=== PATIENT | male | born 1940 | race Hispanic/Latino ===

== ENCOUNTER 2019-07-01 08:31 | Inpatient (IN) | payer MEDICARE ==
[2019-06-29 16:10] LABS: BASOPHILS # (AUTO) 0.1 (0.0-0.1); BASOPHILS % 0.4 % (0.0-1.0); EOSINOPHILS # (AUTO) 0.1 (0.0-0.4); EOSINOPHILS % 0.5 % (0.0-6.0); HEMATOCRIT 41.9 % (38.2-49.6); HEMOGLOBIN 14.3 g/dL (14.0-18.0); LYMPHOCYTES # (AUTO) 8.5 (1.0-3.2); LYMPHOCYTES % 62.1 % (18.0-39.1); MEAN CORPUSCULAR HEMOGLOBIN 33.3 pg (28-32); MEAN CORPUSCULAR HGB CONC 34.1 g/dL (31-35); MEAN CORPUSCULAR VOLUME 97.7 fL (81-99); MONOCYTES # (AUTO) 1.7 (0.2-0.8); MONOCYTES % 12.3 % (4.4-11.3); NEUTROPHILS # (AUTO) 3.3 (2.1-6.9); NEUTROPHILS % 24.6 % (38.7-80.0); PLATELET COUNT 263 x10e3/uL (140-360); RED BLOOD COUNT 4.29 x10e6/uL (4.3-5.7); RED CELL DISTRIBUTION WIDTH 13.9 % (11.7-14.4)
[2019-06-29 16:25] LABS: ANION GAP 15.1 mmol/L (8-16); BLOOD UREA NITROGEN 10 mg/dL (7-26); BUN/CREATININE RATIO 12 (6-25); CALCIUM 9.7 mg/dL (8.4-10.2); CARBON DIOXIDE 25 mmol/L (22-29); CHLORIDE 105 mmol/L (98-107); CREATININE, SERUM 0.86 mg/dL (0.72-1.25); EST GLOMERULAR FILTRATION RATE > 60 ML/MIN (60-); GLUCOSE 130 mg/dL (74-118); POTASSIUM 4.1 mmol/L (3.5-5.1); SODIUM 141 mmol/L (136-145)
--- NOTE | 2019-06-29 16:47 | Diagnostic Imaging Report ---
EXAMINATION: CHEST 2 VIEWS INDICATION: Pre-operative COMPARISON: None FINDINGS: LINES/TUBES:None LUNGS:The lungs are hyperinflated. No focal consolidation or pulmonary edema. Mild bibasilar subsegmental atelectasis. PLEURA:No pleural effusion or pneumothorax. MEDIASTINUM:The cardiomediastinal silhouette appears normal in size and shape. Atherosclerotic calcifications of the thoracic aorta. BONES/SOFT TISSUES:No acute osseous injury. ABDOMEN:No free air under the diaphragm. IMPRESSION: Hyperinflated lungs. No focal pneumonia or pulmonary edema. Signed by: Emanuel Craig MD on 06/29/2019 4:45 PM
[~2019-07-01] VITALS: Ht 170.2 cm; Wt 85.7 kg
[~2019-07-01 08:31] MED LIST: AMLODIPINE BESY10 MG PO; FLOMAX0.4 MG PO; FUROSEMIDE40 MG PO; HUMALOG100 UNIT/1 SQ; KLOR-CON 1010 MEQ PO; LANTUS 3ML100 UNITS/ SQ; OMEPRAZOLE40 MG PO
--- OUTSIDE RECORDS SUMMARY | 2019-07-01 08:40 | XMS REPORT ---
Author Author [facility] Address Unknown Phone Unavailable Care Team Providers [employer] Member Name Role Phone FLY TEMPLE Unavailable Unavailable Problems This patient has no known problems. Allergies, Adverse Reactions, Alerts This patient has no known allergies or adverse reactions. Medications This patient has no known medications. Results Test Description Test Time Test Comments Text Results Atomic Results Result Comments CHEST 2 VIEWS 2019-06-29 16:44:00 [place] [address] Patient Name: MIKE KEARNS MR #: [id number] : 1940 Age/Sex: 78/M Req #: [id number] Adm Physician: Ordered by: FLY TEMPLE MD Report #: [id number] Location: OR Room/Bed: Procedure: [id number] DX/CHEST 2 VIEWS Exam Date: 06/29/19 Exam Time: 1615 REPORT STATUS: Signed EXAMINATION: CHEST 2 VIEWS INDICATION: Pre-operative COMPARISON: None FINDINGS: LINES/TUBES:None LUNGS:The lungs are hyperinflated. No focal consolidation or pulmonary edema. Mild bibasilar subsegmental atelectasis. PLEURA:No pleural effusion or pneumothorax. MEDIASTINUM:The cardiomediastinal silhouette appears normal in size and shape. Atherosclerotic calcifications of the thoracic aorta. BONES/SOFT TISSUES:No acute osseous injury. ABDOMEN:No free air under the diaphragm. IMPRESSION: Hyperinflated lungs. No focal pneumonia or pulmonary edema. Signed by: Ariane Craig MD on 06/29/2019 4:45 PM Dictated By: ARIANE CRAIG MD 44 Transcribed By: LARISA on 06/29/191644 COPY TO: FLY TEMPLE MD
[2019-07-01] MEDS ORDERED: PIPER-TAZ 3.375 GM 50 ML ONE ×2 (08:59→09:04)
[2019-07-01] MEDS ORDERED: GENTAMICIN 80MG/NS 100 ML 200 ML IV ONE (08:59)
[2019-07-01] MEDS ORDERED: IOPAMIDOL 300MG/ML 50ML INFUS..BTL IV ONE (09:11)
[2019-07-01] MEDS ORDERED: B&O 60MG R/S 60 MG SUPP PR ONE (09:11)
[2019-07-01] MEDS ORDERED: BUPIVACAINE 0.5%/EPI 30 ML SDV INJ ONE (09:14)
[2019-07-01] MEDS ORDERED: BUPIVACAINE HCL 0.5% INJ 30 ML VIAL INJ ONE (09:32)
[2019-07-01] MEDS ORDERED: DIPHENHYDRAMINE HCL 25 MG CAP PO PRN (09:45)
[2019-07-01] MEDS ORDERED: B&O 60MG R/S 60 MG SUPP PR PRN (09:45)
[2019-07-01] MEDS ORDERED: ACETAMINOPHEN 1000 MG/100 ML IV PRN (09:45)
[2019-07-01] MEDS ORDERED: ACETAMINOPHEN/CODEINE 300MG - 30MG TAB PO PRN (09:45)
[2019-07-01] MEDS ORDERED: ONDANSETRON HCL INJ 2MG/ML 2ML 2 MG/ML VIAL IV PRN ×2 (09:45→15:45)
[2019-07-01] MEDS ORDERED: BACITRACIN ZINC 15 GM OINT ONE (09:59)
[2019-07-01] MEDS ORDERED: SUGAMMADEX SODIUM 200 MG/2 ML VIAL IV ONE (10:37)
[2019-07-01] MEDS ORDERED: FUROSEMIDE INJ 10 MG/ML 4 ML VIAL ONE (12:32)
[2019-07-01 12:35] LABS: BASOPHILS # (AUTO) 0.1 (0.0-0.1); BASOPHILS % 0.3 % (0.0-1.0); EOSINOPHILS % 0.1 % (0.0-6.0); HEMATOCRIT 40.1 % (38.2-49.6); HEMOGLOBIN 13.4 g/dL (14.0-18.0); LYMPHOCYTES % 45.6 % (18.0-39.1); MEAN CORPUSCULAR HGB CONC 33.4 g/dL (31-35); MEAN CORPUSCULAR VOLUME 98.8 fL (81-99); MONOCYTES # (AUTO) 1.2 (0.2-0.8); NEUTROPHILS % 45.5 % (38.7-80.0); PLATELET COUNT 220 x10e3/uL (140-360); RED BLOOD COUNT 4.06 x10e6/uL (4.3-5.7); RED CELL DISTRIBUTION WIDTH 13.9 % (11.7-14.4)
[2019-07-01 12:56] LABS: ANION GAP 14.1 mmol/L (8-16); BLOOD UREA NITROGEN 10 mg/dL (7-26); BUN/CREATININE RATIO 13 (6-25); CALCIUM 7.6 mg/dL (8.4-10.2); CARBON DIOXIDE 18 mmol/L (22-29); CHLORIDE 111 mmol/L (98-107); CREATININE, SERUM 0.75 mg/dL (0.72-1.25); EST GLOMERULAR FILTRATION RATE > 60 ML/MIN (60-); GLUCOSE 180 mg/dL (74-118); POTASSIUM 4.1 mmol/L (3.5-5.1); SODIUM 139 mmol/L (136-145)
[2019-07-01] MEDS ORDERED: FUROSEMIDE INJ 10 MG/ML 2 ML VIAL IV ONE (13:00)
--- NOTE | 2019-07-01 13:17 | NUR ---
PT ARRIVED FROM PACU TO ROOM 114, CBI WITH SUAZO IN PLACE. PT AWAKE, ALERT, ORIENTED, FAMILY AT BEDSIDE. PT HAS NO COMPLAINTS OF PAIN AT THIS TIME.
[2019-07-01 13:18] VITALS: BP 131/88
[2019-07-01 15:17] LABS: ANISOCYTOSIS SLIGHT; LYMPHOCYTES % (MANUAL) 53 % (19-48); MONOCYTES % (MANUAL) 7 % (3.4-9.0); NEUTROPHILS % (MANUAL) 40 % (40-74); PLATELET ESTIMATE ADEQUATE; PLATELET MORPHOLOGY COMMENT NORMAL; RBC MORPHOLOGY COMMENT NORMAL
[2019-07-01] MEDS ORDERED: DEXTROSE 50% SYRINGE 50 ML IV PRN (15:45)
--- NOTE | 2019-07-01 15:45 | NUR ---
PAGING VENCES REGARDING PT'S BLOOD SUGAR OF 225 AND NEED FOR RESTARTING HOME MEDS.
[2019-07-01] MEDS ORDERED: INSULIN LISPRO 6 UNIT SQ SCH (16:30)
[2019-07-01] MEDS: SOD CHL 0.45%/POT CHL 20MEQ 1,000 ML IV SCH ×2 (17:01→17:14)
[2019-07-01] MEDS: PIPER-TAZ 3.375 GM 50 ML IV SCH (17:02)
[2019-07-01] MEDS: PHENAZOPYRIDINE HCL 100 MG TAB PO SCH ×2 (17:09→22:11)
[2019-07-01] MEDS: DOCUSATE SODIUM 100 MG CAP PO SCH (17:09)
[2019-07-01] MEDS: INSULIN LISPRO 100 UNIT/1 ML 3ML VIAL SQ SCH ×3 (17:15→21:10)
[2019-07-01 17:22] VITALS: BP 120/76
[2019-07-01] MEDS ORDERED: EPHEDRINE SULFATE INJ 50 MG/ML VIAL ONE (17:53)
[2019-07-01] MEDS ORDERED: PROPOFOL IV EMULSION 10 MG/ML 50 ML VIAL ONE (17:53)
[2019-07-01] MEDS ORDERED: ROCURONIUM BROMIDE 10 MG/ML 5ML VIAL ONE (17:53)
[2019-07-01] MEDS ORDERED: ACETAMINOPHEN 1000 MG/100 ML IV ONE (17:53)
[2019-07-01] MEDS ORDERED: DEXAMETHASONE SOD PHOS INJ 4 MG/ML VIAL ONE (17:53)
[2019-07-01] MEDS ORDERED: SEVOFLURANE INHAL SOLN 250 ML PEN BTL ONE (17:53)
[2019-07-01] MEDS ORDERED: LIDOCAINE HCL 2% LOCAL INJ 5 ML SDV VIAL INJ ONE (17:53)
[2019-07-01] MEDS ORDERED: ONDANSETRON HCL INJ 2MG/ML 2ML 2 MG/ML VIAL ONE (17:53)
[2019-07-01] MEDS ORDERED: GLYCOPYRROLATE INJ 0.2 MG/ML VIAL ONE (17:53)
[2019-07-01] MEDS ORDERED: FENTANYL CITRATE/PF 100MCG/2 ML INJ ONE (18:10)
[2019-07-01 20:00] VITALS: BP 136/76
[2019-07-01 20:51] VITALS: BP 136/76
[2019-07-01] MEDS ORDERED: NON-FORMULARY MEDICATION (Insulin Glargine (Lantus 3ML Pen) 15 UNITS) SQ SCH (21:00)
--- NOTE | 2019-07-01 21:10 | NUR ---
Assessment done.no resp.distress.pain voiced 08/03.on contd.bladder irrigation.muñoz colored urine draining.no clots noted.scd applied.dudley hose in place.bed locked and in lowest position.phone and call light within reach.instructed to call for assistance as needed.
[2019-07-01] MEDS: INSULIN GLARGINE 100 UNITS/ML VIAL SQ SCH (21:40)
[2019-07-01] MEDS: TAMSULOSIN HCL 0.4 MG CAP PO SCH (22:11)
--- NOTE | 2019-07-01 22:32 | History and Physical ---
PRIMARY CARE PHYSICIAN: Samm Zuniga MD SCALLOP CUTTER MACHINE: Raul Hoff MD CHIEF COMPLAINT: Status post TURP and prostate biopsy. HISTORY OF PRESENT ILLNESS: The patient is an 78-year-old male with enlarged prostate and also possible prostate lesion. He also has diabetes type 2, on insulin therapy, uncontrolled. Baseline very hard hearing and osteoarthritis, but otherwise, the patient was stable. He is now status post TURP procedures with prostate biopsy and the patient is getting continuous urinary bladder irrigation. He is lethargic now postop, but seems very comfortable and unremarkably stable. PAST MEDICAL HISTORY: Very hard of hearing, osteoarthritis; diabetes type 2, on insulin treatment, uncontrolled due to compliancy to diet. Enlarged prostate. Reflux. SOCIAL HISTORY: The patient lives with his family. He has very good family support. No smoking. No recreational drug use. No alcohol. ALLERGIES: NO KNOWN ALLERGIES. HOME MEDICATIONS: Norvasc, furosemide, Lantus insulin, lispro insulin, omeprazole, potassium, Flomax, and Lasix. PHYSICAL EXAMINATION: VITAL SIGNS: Temperature is 98, blood pressure 131/81, pulse rate 61, respirations 18. GENERAL: The patient is not in acute distress. He is arousable postoperative today. HEENT: Normocephalic and atraumatic. Sclerae anicteric. NECK: Supple grossly. PULMONARY: Diminished breath sounds, but no wheezing or rales. CARDIOVASCULAR: S1, S2. Regular rate and rhythm. ABDOMEN: Soft. Flynn catheter in place, status post TURP. EXTREMITIES: No cyanosis or edema. NEUROLOGIC: No focal deficit. LABORATORY DATA: WBC 15.3, hemoglobin 13.4, hematocrit 40, platelets 220. Chemistry; sodium 139, potassium 4.1, chloride 111, bicarb 18. BUN is 10, creatinine 0.7, glucose is 180. Magnesium is 1.5. IMPRESSION: 1. Status post TURP procedures. 2. Gross hematuria postop. It is normal and appropriate. 3. Enlarged prostate. 4. Uncontrolled diabetes type 2, on insulin therapy. 5. Very hard of hearing. 6. Baseline hypertension. PLAN: Continue to monitor patient's electrolyte. Insulin sliding scale coverage. Insulin treatment with cutting back on the dose since the patient is going to be having more diet control here since he is noncompliant to diet at home. Continue with urinary bladder irrigation. Continue with monitoring the patient. IV fluids. Check the patient's blood work in the morning. We will get incentive spirometry subsequently. Rina august. We will monitor the patient closely. MD NAZIA Rodriguez/LAURA /[id number]
[2019-07-02] VITALS (8 sets, daily range): BP systolic 111–138; BP diastolic 58–81
[2019-07-02] MEDS: PIPER-TAZ 3.375 GM 50 ML IV SCH ×3 (00:40→18:05)
[2019-07-02] MEDS: SOD CHL 0.45%/POT CHL 20MEQ 1,000 ML IV SCH (02:05)
--- NOTE | 2019-07-02 04:07 | NUR ---
Flynn care given.resting comfortably.stable condition.
[2019-07-02 05:44] LABS: BASOPHILS % 0.2 % (0.0-1.0); EOSINOPHILS % 0.2 % (0.0-6.0); HEMATOCRIT 36.9 % (38.2-49.6); HEMOGLOBIN 12.3 g/dL (14.0-18.0); LYMPHOCYTES # (AUTO) 7.6 (1.0-3.2); LYMPHOCYTES % 45.5 % (18.0-39.1); MEAN CORPUSCULAR HEMOGLOBIN 32.8 pg (28-32); MEAN CORPUSCULAR HGB CONC 33.3 g/dL (31-35); MEAN CORPUSCULAR VOLUME 98.4 fL (81-99); MONOCYTES # (AUTO) 0.9 (0.2-0.8); MONOCYTES % 5.2 % (4.4-11.3); NEUTROPHILS # (AUTO) 8.1 (2.1-6.9); NEUTROPHILS % 48.5 % (38.7-80.0); PLATELET COUNT 243 x10e3/uL (140-360); RED BLOOD COUNT 3.75 x10e6/uL (4.3-5.7); RED CELL DISTRIBUTION WIDTH 13.8 % (11.7-14.4)
[2019-07-02 06:04] LABS: ANION GAP 14.1 mmol/L (8-16); BLOOD UREA NITROGEN 9 mg/dL (7-26); BUN/CREATININE RATIO 11 (6-25); CALCIUM 8.4 mg/dL (8.4-10.2); CARBON DIOXIDE 25 mmol/L (22-29); CHLORIDE 104 mmol/L (98-107); CREATININE, SERUM 0.81 mg/dL (0.72-1.25); EST GLOMERULAR FILTRATION RATE > 60 ML/MIN (60-); GLUCOSE 157 mg/dL (74-118); POTASSIUM 4.1 mmol/L (3.5-5.1); SODIUM 139 mmol/L (136-145)
[2019-07-02] MEDS: AMLODIPINE BESYLATE 10 MG TAB PO SCH (06:04)
--- NOTE | 2019-07-02 07:05 | NUR ---
Bed side shift report given to oncoming Rn.stable condition.
--- NOTE | 2019-07-02 07:06 | NUR ---
BEDSIDE SHIFT REPORT RECEIVED FROM ONCOLOGY PHYSICIAN RN; PT IN STABLE CONDITION.
[2019-07-02] MEDS: INSULIN LISPRO 100 UNIT/1 ML 3ML VIAL SQ SCH ×7 (08:34→21:20)
[2019-07-02] MEDS: TAMSULOSIN HCL 0.4 MG CAP PO SCH ×2 (08:53→21:56)
[2019-07-02] MEDS: DOCUSATE SODIUM 100 MG CAP PO SCH ×2 (08:53→18:05)
[2019-07-02] MEDS: PANTOPRAZOLE SOD 40 MG TABEC PO SCH (08:53)
[2019-07-02] MEDS: PHENAZOPYRIDINE HCL 100 MG TAB PO SCH ×3 (08:54→18:05)
[2019-07-02] MEDS ORDERED: ONDANSETRON HCL 4 MG ORAL DISINTEGRATING TAB PO PRN (09:30)
[2019-07-02] MEDS: SODIUM BICARBONATE 8.4% 50 ML in SODIUM CHLORIDE 0.45% 1,000 ML IV SCH ×2 (10:27→22:01)
[2019-07-02] MEDS: INSULIN GLARGINE 100 UNITS/ML VIAL SQ SCH (21:15)
[2019-07-03] VITALS: BP 122/59
[2019-07-03] MEDS: PIPER-TAZ 3.375 GM 50 ML IV SCH (01:02)
--- NOTE | 2019-07-03 01:14 | NUR ---
Flynn care given.orange colored urine draining.no resp.distress.no pain voiced.bed locked and in lowest position.phone and call light within reach.instructed to call for assistance as needed.
[2019-07-03] MEDS: AMLODIPINE BESYLATE 10 MG TAB PO SCH (06:13)
[2019-07-03] MEDS: SODIUM BICARBONATE 8.4% 50 ML in SODIUM CHLORIDE 0.45% 1,000 ML IV SCH (06:15)
--- NOTE | 2019-07-03 07:00 | NUR ---
BED SIDE SHIFT REPORT GIVEN TO ONCOMING RN.STABLE CONDITION.
[2019-07-03] MEDS: INSULIN LISPRO 100 UNIT/1 ML 3ML VIAL SQ SCH ×6 (07:30→17:44)
[2019-07-03 08:15] VITALS: BP_SYST 124; BP_SYST 133; BP_DIAS 59; BP_DIAS 62
[2019-07-03 09:21] LABS: BASOPHILS # (AUTO) 0.1 (0.0-0.1); BASOPHILS % 0.3 % (0.0-1.0); EOSINOPHILS # (AUTO) 0.1 (0.0-0.4); EOSINOPHILS % 0.5 % (0.0-6.0); HEMATOCRIT 37.6 % (38.2-49.6); HEMOGLOBIN 12.7 g/dL (14.0-18.0); LYMPHOCYTES # (AUTO) 9.5 (1.0-3.2); LYMPHOCYTES % 54.8 % (18.0-39.1); MEAN CORPUSCULAR HGB CONC 33.8 g/dL (31-35); MEAN CORPUSCULAR VOLUME 97.7 fL (81-99); MONOCYTES # (AUTO) 1.5 (0.2-0.8); MONOCYTES % 8.9 % (4.4-11.3); NEUTROPHILS # (AUTO) 6.1 (2.1-6.9); NEUTROPHILS % 35.2 % (38.7-80.0); PLATELET COUNT 225 x10e3/uL (140-360); RED BLOOD COUNT 3.85 x10e6/uL (4.3-5.7)
[2019-07-03 09:47] LABS: ANION GAP 13.7 mmol/L (8-16); BLOOD UREA NITROGEN 12 mg/dL (7-26); BUN/CREATININE RATIO 14 (6-25); CALCIUM 8.3 mg/dL (8.4-10.2); CARBON DIOXIDE 25 mmol/L (22-29); CHLORIDE 101 mmol/L (98-107); CREATININE, SERUM 0.84 mg/dL (0.72-1.25); EST GLOMERULAR FILTRATION RATE > 60 ML/MIN (60-); GLUCOSE 256 mg/dL (74-118); POTASSIUM 3.7 mmol/L (3.5-5.1); SODIUM 136 mmol/L (136-145)
[2019-07-03] MEDS ORDERED: LEVOFLOXACIN 500 MG TAB PO SCH (10:15)
[2019-07-03 10:26] LABS: LYMPHOCYTES % (MANUAL) 47 % (19-48); MONOCYTES % (MANUAL) 3 % (3.4-9.0); NEUTROPHILS % (MANUAL) 30 % (40-74)
[2019-07-03 10:27] LABS: PLATELET ESTIMATE ADEQUATE; PLATELET MORPHOLOGY COMMENT NORMAL; RBC MORPHOLOGY COMMENT NORMAL
[2019-07-03] MEDS: DOCUSATE SODIUM 100 MG CAP PO SCH ×2 (10:42→17:00)
[2019-07-03] MEDS: PANTOPRAZOLE SOD 40 MG TABEC PO SCH (10:42)
[2019-07-03] MEDS: TAMSULOSIN HCL 0.4 MG CAP PO SCH (10:43)
[2019-07-03] MEDS: PHENAZOPYRIDINE HCL 100 MG TAB PO SCH (10:43)
[2019-07-03 12:29] VITALS: BP 127/60
[2019-07-03] MEDS ORDERED: TYLENOL WITH C1 EACH PO (16:55)
[2019-07-03] MEDS ORDERED: LEVAQUIN500 MG PO (16:55)
[2019-07-03 17:44] VITALS: BP 128/67
--- NOTE | 2019-08-10 05:13 | Operative Report ---
DATE OF PROCEDURE: 07/01/2019 SURGEON: Raul Hoff MD PREOPERATIVE DIAGNOSES: 1. Genital lesion. 2. Elevated PSA. 3. Incomplete bladder emptying. 4. Obstructive benign prostatic hyperplasia. OPERATIONS PERFORMED: 1. Prostate biopsies (separate procedure performed for the elevated PSA). 2. Interpretation of prostatic ultrasound, no radiologist present. 3. Ultrasonographic guidance for needle biopsy of the prostate interpretation without radiologist present. 4. Excision of genital lesion. 5. Complex wound repair reconstruction utilizing local flaps. 6. Cystourethroscopy with bilateral ureteral catheterization and retrograde ureteropyelography (separate procedure performed for the incomplete bladder emptying). 7. Interpretation of retrograde ureteropyelography. 8. Cystourethroscopy with transurethral resection of the prostate utilizing a plasma band. ANESTHESIA: General. COMPLICATIONS: None. CLINICAL SUMMARY: Leon Brown is an 78-year-old man with the above preoperative diagnoses. He is brought for the above procedures. He is aware of the risks of bleeding, infection, injury to adjacent structures, need for additional procedures and elected to proceed. OPERATIVE PROCEDURE IN DETAIL: Informed consent was verified. Leon Brown was properly identified, taken to the operating room, placed on the cystoscopy table in supine position. Anesthesia was uneventfully begun. The patient was then carefully and gently repositioned in dorsal lithotomy position. All pressure points were well padded. A transrectal sonography was performed. Interpretation of transrectal sonography. Real-time ultrasonography was performed transrectally. The patient's prostate measured 70 mL in volume. There were some calcifications at the junction between the transition zone and the peripheral zone. Seminal vesicles were unremarkable. Prostatic capsule was smooth. With ultrasonographic guidance, needle biopsies of the prostate were taken. A total of 12 biopsies were taken, 6 at each side. These 12 biopsies were distinguished in 6 containers right versus left and base versus mid versus apex. Following completion of the biopsies, the patient's genitalia were prepared and draped in usual sterile fashion. An elliptical incision was then made overlying the lesion. The lesion was then excised. The flaps were mobilized circumferentially and complex repair was performed in 2 layers utilizing mobilization of the flaps. Excellent cosmetic result was achieved. Cystoscope sheath with the visual obturator in place was atraumatically inserted into the patient's urethra, it was guided unremarkable urethra through the normal sphincteric region through the prostate bed, which was significant for visual obstructing BPH with a long prostatic urethra. We entered the patient's bladder. Panendoscopy revealed heavy trabeculations and some small diverticula. No suspicious lesions were identified. An 8-Irish catheter was used to cannulate each ureter and retrograde ureteropyelogram was performed. Interpretation of retrograde ureteropyelography contrast was instilled in retrograde fashion bilaterally. There were no tumors, no stones, no diverticula. There was ureteral tortuosity noted bilaterally. There was bilateral J hooking with tortuosity. Nevertheless, unobstructed drainage was observed bilaterally fluoroscopically. The cystoscope was withdrawn. The resectoscope was atraumatically placed with an obturator in place. We then utilized the PlasmaBand electrode to resect the prostate from the bladder neck tube, but never passed the verumontanum and down the surgical capsule. Pinpoint electrocautery was utilized to achieve hemostasis. All chips were evacuated and this was verified endoscopically. Following placement of a continuous irrigation Flynn with clear efflux, a belladonna and opium suppository were placed. The patient was uneventfully reversed from anesthesia and taken to recovery room in stable condition. There were no complications to the procedure. The patient tolerated the procedure well. Estimated blood loss was minimal. Digital rectal examination during this procedure revealed a prostate that is larger than 50 g. PLANS: Plans will be to proceed with routine postoperative care and ongoing urological followup. Raul Hoff MD [place]/MODL /[id number] cc: Samm Zuniga MD
== END 2019-07-03 18:13 | disposition home or self-care (01) | DRG 709 ==
LOC: OR 08:31 → PACU V 12:38 → MED/SURG 13:19
PROVIDERS: ADMIT Internal Medicine; ATTEND Internal Medicine
PROC: 0T788ZZ Dilation of Bilateral Ureters, Via Natural or Artificial Opening Endoscopic (ICD-10-PCS; 2019-07-01)
PROC: BT141ZZ Fluoroscopy of Kidneys, Ureters and Bladder using Low Osmolar Contrast (ICD-10-PCS; 2019-07-01)
PROC: 0VB08ZX Excision of Prostate, Via Natural or Artificial Opening Endoscopic, Diagnostic (ICD-10-PCS; 2019-07-01)
PROC: 0VBS0ZZ Excision of Penis, Open Approach (ICD-10-PCS; principal; 2019-07-01 10:30)
PROC: 0VB08ZZ Excision of Prostate, Via Natural or Artificial Opening Endoscopic (ICD-10-PCS; 2019-07-01 10:30)
PROC: 0VXT0ZS Transfer Prepuce to Penis, Open Approach (ICD-10-PCS; 2019-07-01 10:30)
DX: N40.1 Benign prostatic hyperplasia with lower urinary tract symptoms (principal); N13.8 Other obstructive and reflux uropathy; R31.0 Gross hematuria; N50.9 Disorder of male genital organs, unspecified; R39.14 Feeling of incomplete bladder emptying; H91.90 Unspecified hearing loss, unspecified ear; I10 Essential (primary) hypertension; M19.90 Unspecified osteoarthritis, unspecified site; Z91.11 Patient's noncompliance with dietary regimen; E11.65 Type 2 diabetes mellitus with hyperglycemia
CPT/HCPCS: 36415; 71046; 74420; 76872; 76998; 80048; 82948; 83735; 85025; 88305; 93005; C1758; J1100; J1580; J1815; J1940; J2001; J2405; J2543; J3010